=== PATIENT | female | born 1970 | race Caucasian/White ===

== ENCOUNTER → 2019-11-08 10:25 | Outpatient (BNVA) | payer OTHER, SELFPAY | PROVIDERS: PCP Family Medicine; Referring Provider Family Medicine; Visit Provider Anesthesiology Pain Medicine | DX: M54.16 Radiculopathy, lumbar region (principal); M79.18 Myalgia, other site; M96.1 Postlaminectomy syndrome, not elsewhere classified; Z79.891 Long term (current) use of opiate analgesic | CPT/HCPCS: 20553; 99999; J1030; J3490 ==

== ENCOUNTER 2019-11-19 16:04 | Outpatient (CLI) | payer OTHER, SELFPAY ==
--- NOTE | 2019-11-19 16:00 | MR_ITS ---
WS: [id number] MRI LUMBAR SPINE NONCONTRAST HISTORY: radicular pain COMPARISON: None available. TECHNIQUE: Sagittal and axial multisequence imaging is submitted. Mild RIGHT thoracic curvature. Benign vertebral body hemangioma at T11. Posterior lumbar alignment is normal. Mild disc desiccation throughout the lumbar spine. No fractures or marrow edema. Conus terminates normally at L1. L1-L2: Normal. L2-L3: Central disc protrusion and annular fissure. Mild facet and ligamentum flavum arthropathy. No significant stenosis. L3-L4: Mild annular disc bulging with a central disc protrusion. Very small protrusion with mild liga mentum flavum hypertrophy and facet arthropathy. There is mild narrowing of the subarticular recesses with no significant stenosis. L4-L5: Mild annular disc bulging with facet and ligamentum flavum arthropathy. Postsurgical changes a re noted at the L4-5 disc level. Suspect partial LEFT laminectomy. Mild bilateral foraminal narrowing . No significant stenosis. L5-S1: Mild annular disc bulging. Central canal is small with mild osteophytosis. Mild encroachment u irma the S1 nerve roots bilaterally. More significant encroachment on the LEFT S1 nerve root. As a juan r tral disc protrusion with mild contact bilaterally on the S1 nerve roots. Mild bilateral foraminal na rrowing. Paraspinal soft tissues are normal. MR/MR lumbar spine wo con* [id number] IMPRESSION: 1. No significant stenosis throughout the lumbar spine. 2. Mild disc and osteophyte encroachment upon the S1 nerve roots bilaterally. 3. Mild foraminal stenosis at L4-5. 4. Mild bilateral subarticular recess stenosis at L3-4. 5. Small central disc protrusions at L2-3 and L3-4.
== END 2019-11-19 16:05 | disposition home or self-care (01) ==
PROVIDERS: PCP Family Medicine; Visit Provider Anesthesiology Pain Medicine
DX: M54.16 Radiculopathy, lumbar region (principal); M96.1 Postlaminectomy syndrome, not elsewhere classified; M48.061 Spinal stenosis, lumbar region without neurogenic claudication; M51.26 Other intervertebral disc displacement, lumbar region
CPT/HCPCS: 72148

== ENCOUNTER 2021-01-08 12:18 | Day surgery (SDC) | payer SELFPAY ==
--- NOTE | 2021-01-08 | XR_ITS ---
WS: [id number] C-ARM RADIOGRAPHS RIGHT FOOT; 3 IMAGES HISTORY: SEWING NEEDLE REMOVAL COMPARISON: None available. Intraoperative imaging during foreign body removal. Last image demonstrates the foreign body has been removed. XR/XR foot RT 2V [id number] IMPRESSION: Intraoperative imaging during foreign removal RIGHT foot.
--- NOTE | 2021-01-08 | SCC_ITS ---
Procedure Done: 1. Removal of foreign body right foot 97.7 seconds of fluoroscopic guidance, for a cumulative dose of 1.38 mGy, was provided to Dr. Mallory by the radiology department. C-arm images of the RIGHT foot were saved for the patient's permanent record. [facility]
[2021-01-08 12:47] VITALS: BP 131/100; PULSE 76; RESP 18; TEMP 36.2; O2SAT 97
[2021-01-08 12:50] VITALS: BMI 25.7
--- NOTE | 2021-01-08 13:17 | P.ANESASSM_ITS ---
Pre-Anesthetic Assessment Pre-Anesthetic Assessment: Height/Weight: Height 1.63 m Weight 68.039 kg Temp Pulse Resp BP Pulse Ox 97.1 F L 76 18 131/100 97 01/08/21 12:47 01/08/21 12:47 01/08/21 12:47 01/08/21 12:47 01/08/21 12:47 Proposed Procedure: Operation Date: 01/08/21 13:20 Proposed Procedures p Foreign Body Removal Left Foot 06231 M79.5(Left) - Rancho Mallory MD Was Beta Garcia taken within 24 hours: N/A Was Clonidine taken within 24 hours: N/A Last intake: Intake Last Liquid Date 01/08/21 Last Liquid Time 08:30 Last Solid Date 01/08/21 Last Solid Time 08:30 Social: Social History: No alcohol and No tobacco Exam: Pre-Anes Outpt Exam: alert, oriented x 3, clear to auscultation bilaterally and regular rate & rhythm Airway: Submandibular: WNL Cervical ROM: WNL MP: 2 Dentition: Full Musc/skel: Musc/skel: Lower Back Pain Anesthetic Plan: ASA status: 2 Anesthesia: Choice Risk of > 500 ml blood loss (7ml/kg in children): No PFSH Anesthesia PFSH: Medical History (Updated 01/08/21 @ 13:11 by Rancho Mallory MD) Diverticulitis Surgical History (Updated 01/08/21 @ 11:37 by Rancho Mallory MD) History of laparoscopic cholecystectomy History of lumbar laminectomy (~2016) L4-5 BILAT LAMINECTOMY IN [place] History of tonsillectomy and adenoidectomy Hx of appendectomy (~2014) Hx of hysterectomy with oophorectomy Family History (Updated 01/08/21 @ 11:10 by Tacos Drake) Brother Diverticulitis Mother CAD (coronary artery disease) Other Diabetes Denies family history of Cancer Social History (Updated 11/08/19 @ 10:43 by Sheri Espinosa LPN) Smoking and tobacco status: never smoked Alcohol intake: current Alcohol intake frequency: few times a month Caregiver/support person: Yes Lives independently: Yes History of recent travel: No Data Anesthesia Cardiac Studies: No Data to Display
[2021-01-08] MEDS: sodium chloride 0.9% 1,000 ML 30 ML IV (14:17)
[2021-01-08] MEDS: lidocaine 1% INJ 20 mL 10 ML INJECTION (14:37)
[2021-01-08 14:47] VITALS: BP 96/70; PULSE 74; RESP 12; TEMP 36.1; O2SAT 96
[2021-01-08 14:50] VITALS: BP 97/71; PULSE 74; RESP 14; O2SAT 96
[2021-01-08] MEDS: neomycin-poly-bacitracin oint 28 gm 1 APPLIC TOPICAL (14:53)
[2021-01-08 14:55] VITALS: BP 110/74; PULSE 71; RESP 16; TEMP 36.4; O2SAT 96
[2021-01-08 15:13] VITALS: BP 110/74; PULSE 61; RESP 18; TEMP 36.4; O2SAT 97
--- NOTE | 2021-01-08 15:42 | PM.OP ---
Operative Report Date of procedure: January 08, 2021 Pre-op Diagnosis: Foreign body [piece of sewing needle] right foot Post-op diagnosis: same Procedure Done: 1. Removal of foreign body right foot 2. Fluoroscopic guidance and interpretation for removal of foreign body right foot Surgeon: Rancho Mallory Anesthesia: MAC and Local Condition: stable Disposition: PACU Procedure: The patient was taken to the operating room and placed under MAC. The right foot was prepped and draped in a sterile manner. Using a 15 blade 1 cm transverse incision was made over the existing wound on the medial aspect of the right foot over the metatarsal head. Under fluoroscopy the needle was identified and grasped with hemostats and removed intact. Fluoroscopy confirmed no residual foreign body. Wound was irrigated with saline and skin closed with 3-0 Prolene sutures. Antibiotic cream, 4 x 4 gauze, Kerlix was used to wrap the right foot. The patient was transferred to recovery room in stable condition.
--- NOTE | 2021-01-08 16:24 | ANE.PACU2 ---
Inpatient post-anesthesia follow up: Airway intact: Yes Vital signs: Temperature 97.6 F Pulse Rate 61 Respiratory Rate 18 Blood Pressure 110/74 Pulse Oximetry 97 Oxygen Delivery Me thod Room Air Oxygen Flow Rate Fraction of Inspir ed Oxygen Hydration adequate: Yes Nausea and vomiting: No Pain level: 1 Mental status: Baseline
== END 2021-01-08 15:33 | disposition home or self-care (01) ==
PROVIDERS: PCP Family Medicine; Visit Provider Surgery
PROC: (CPT 28190; principal; 2021-01-08 13:10)
DX: S91.341A Puncture wound with foreign body, right foot, initial encounter (principal); X58.XXXA Exposure to other specified factors, initial encounter
CPT/HCPCS: 28190; 73620; 76000; J2250; J2704; J3010; J3490; J7030

== ENCOUNTER 2022-02-03 08:18 | Outpatient (CLI) | payer BC, SELFPAY ==
--- NOTE | 2022-02-03 08:25 | MM_ITS ---
WS: [id number] SCREENING DIGITAL BREAST TOMOSYNTHESIS MAMMOGRAM WITH CAD HISTORY: SCREENING COMPARISON: None available. Bilateral CC and MLO with tomosynthesis views submitted. Synthetic mammography reviewed. Computer aid ed detection analyzed. Breast composition: There are scattered areas of fibroglandular density. No suspicious masses, microc alcifications or architectural distortion. Asymmetry upper outer quadrant of the LEFT breast with no distortion or mass. MM/[place] [id number] IMPRESSION: BI-RADS: 2-Benign FOLLOW UP: 1 Year Follow-up
== END 2022-02-03 08:19 | disposition home or self-care (01) ==
PROVIDERS: PCP Family Medicine; Visit Provider Family Medicine
DX: Z12.31 Encounter for screening mammogram for malignant neoplasm of breast (principal)
CPT/HCPCS: 77063; 77067

== ENCOUNTER 2022-11-17 06:00 | Outpatient (RCR) | payer BC, SELFPAY | END 2022-12-16 23:59 | disposition home or self-care (01) | LOC: TPT 06:00 | PROVIDERS: Visit Provider Family Medicine | DX: M25.511 Pain in right shoulder (principal) | CPT/HCPCS: 97110; 97140; 97162 ==

== ENCOUNTER 2022-12-17 06:00 | Outpatient (RCR) | payer BC, SELFPAY | END 2022-12-26 15:01 | disposition home or self-care (01) | LOC: TPT 06:00 | PROVIDERS: Visit Provider Family Medicine | DX: M54.6 Pain in thoracic spine (principal) | CPT/HCPCS: 97110; 97140 ==

== ENCOUNTER 2023-01-04 06:00 | Outpatient (RCR) | payer BC, SELFPAY | END 2023-01-15 23:59 | disposition home or self-care (01) | LOC: TPT 06:00 | PROVIDERS: Visit Provider Anesthesiology Pain Medicine | DX: M54.6 Pain in thoracic spine (principal) | CPT/HCPCS: 97110; 97140; 97162 ==

== ENCOUNTER 2023-01-16 06:00 | Outpatient (RCR) | payer BC, SELFPAY | END 2023-02-15 23:59 | disposition home or self-care (01) | LOC: TPT 06:00 | PROVIDERS: Visit Provider Anesthesiology Pain Medicine | DX: M54.6 Pain in thoracic spine (principal) | CPT/HCPCS: 97110 ==

== ENCOUNTER 2025-06-27 15:10 | Outpatient (CLI) | payer OTHER, SELFPAY ==
--- NOTE | 2025-06-27 15:16 | MM_ITS ---
WS: [id number] BILATERAL 3D TOMOSYNTHESIS DIGITAL SCREENING MAMMOGRAPHY WITH CAD CLINICAL INFORMATION: SCREENING HISTORY: Screening mammogram. No current complaints. COMPARISON: 2021 TECHNIQUE: Bilateral CC and MLO views. FINDINGS: The breasts are composed of heterogeneous fibroglandular density tissue, which can limit the detection of small underlying mass lesions. No suspicious mass, asymmetry, calcifications, or architectural distortion. No evidence of malignancy. MM/MM scr BI tomosynthesis [id number] IMPRESSION: DENSITY: There are scattered areas of fibroglandular density. BI-RADS: 1 - Negative. FOLLOW UP: 1 Year Follow-up Recommend return to annual screening mammography.
== END 2025-06-27 15:11 | disposition home or self-care (01) ==
LOC: RAD 15:13
PROVIDERS: PCP Internal Medicine; Visit Provider Internal Medicine
DX: Z12.31 Encounter for screening mammogram for malignant neoplasm of breast (principal); R92.323 Mammographic fibroglandular density, bilateral breasts; R92.333 Mammographic heterogeneous density, bilateral breasts
CPT/HCPCS: 77063; 77067